=== PATIENT | male | born 1990 | race Two or more races ===

== ENCOUNTER 2023-02-14 19:38 | Emergency (ER) | payer OTHER ==
[~2023-02-14] VITALS: Ht 175.3 cm; Wt 65.4 kg
[2023-02-14 20:10] VITALS: BP 117/82; PULSE 84; RESP 18; O2SAT 98
== END 2023-02-14 20:21 | disposition left against medical advice (07) ==
LOC: ER 19:38
DX: S10.15XA Superficial foreign body of throat, initial encounter (principal); Z53.21 Procedure and treatment not carried out due to patient leaving prior to being seen by health care provider; X58.XXXA Exposure to other specified factors, initial encounter; Y93.89 Activity, other specified; Y92.89 Other specified places as the place of occurrence of the external cause; Y99.8 Other external cause status